=== PATIENT | female | born 1975 | race Caucasian/White ===

== ENCOUNTER → 2021-02-26 | Outpatient (CLI) | payer OTHER | END | disposition home or self-care (01) | LOC: RADMRIMAIN 11:26 | PROVIDERS: ATTEND Orthopaedic Surgery | DX: Z53.9 Procedure and treatment not carried out, unspecified reason (principal) ==

== ENCOUNTER → 2021-05-24 | Day surgery (SDC) | payer OTHER ==
[~2021-05-24] MED LIST: diazePAM 5 MG TAB PO STA
[2021-05-24 08:25] VITALS: RESP 16; TEMP 97.8
--- NOTE | 2021-05-24 10:05 | FL ---
EXAMINATION TYPE: FL myelogram cervical DATE OF EXAM: 05/24/2021 9:37 AM HISTORY: Cervical neck pain Informed consent was obtained and all the patient's questions were answered. The L3-L4 level was loc alized under fluoroscopy. Standard sterile technique was utilized as well as appropriate local anest hesia 1% Lidocaine and sodium bicarbonate. Spinal needle was introduced into the thecal sac under fl uoroscopic guidance and 12 ml of Omni 300 was injected. The patient tolerated the procedure well and left the department in stable condition. CT myelography is to follow. IMPRESSION: Successful myelography cervical spine
--- NOTE | 2021-05-24 10:41 | CT ---
EXAMINATION TYPE: CT cervical spine w con DATE OF EXAM: 05/24/2021 COMPARISON: None HISTORY: Post myelogram CT of the cervical spine. Neck pain CT DLP: 326.9 mGycm CONTRAST: Performed with IV Contrast, patient injected with 12 ml mL of Isovue M300. Post myelogram CT of the c ervical spine. Post myelography CT of the cervical spine was performed from C1 through C7-T1. Axial coronal and sag ittal images are submitted. C1-C2: Within normal limits C2-C3: Within normal limits C3-C4: Within normal limits C4-C5: There is mild degenerative disc space narrowing. Posterior disc bulge noted. Mild effacement o f the ventral thecal sac. No evidence for central stenosis or cord contact. Foramina are patent bilat erally. C5-C6: Mild to moderate degenerative disc space narrowing. Posterior disc bulge with partial encapsu lating spur. Centrally and to the right resulting in hard disc. There is mild effacement of the ventr al thecal sac without central stenosis. No cord contact identified. Mild narrowing right neural shakeel en secondary to a small spur. C6-C7: Within normal limits C7-T1: Within normal limits There is no evidence for fracture. Normal alignment is present. Minimal ventral spondylosis. IMPRESSION: 1. Degenerative disc disease at C4-5 and C5-6. 2. Right paracentral hard disc at C5-6 resulting in mild effacement ventral thecal sac without cord c ontact. Right foraminal encroachment secondary to spurring at the apophyseal joint.
[2021-05-24 12:49] VITALS: BP 105/58; PULSE 77
== END | disposition home or self-care (01) ==
LOC: RADPROMAIN 08:07
PROVIDERS: ATTEND Orthopaedic Surgery
DX: M50.322 Other cervical disc degeneration at C5-C6 level (principal); M25.78 Osteophyte, vertebrae
CPT/HCPCS: 62284; 62302; 72126; Q9967

== ENCOUNTER 2021-06-05 06:27 | Day surgery (SDC) | payer OTHER ==
[2021-06-03 15:53] VITALS: BMI 25.0
--- NOTE | 2021-06-04 13:20 | P.HPOR ---
History of Present Illness H&P Date: 06/04/21 Chief Complaint: Left Carpal Tunnel Syndrome Subjective: This is a 46 year old female that presents today for initial evaluation regarding a several year history of bilateral hand pain/numbness. She has symptoms at night time that wake her from sleep. She has tried night splinting as well as injections into the carpal tunnel with minimal relief. She has recently seen Dr. Amaya for mild right C5/6 nerve root irritation and is referred today for further evaluation regarding carpal tunnel syndrome findings on EMG. She denies any injury or inciting event. She states she has trouble lifting or gripping anything with the hand due to weakness. She states her left side is more symptomatic than her right but both hands are numb, specifically the thumb, index and middle fingers. Physical Examination: LUE: AIN/PIN/Radial/Ulnar/Median motor intact. Radial/Ulnar/Median SILT. 2+/4 Radial/Ulnar pulses palpated. 4/5 APB, 5/5 FDI. Negative Finkelsteins, negative CMC grind, positive Durkan's compression. RUE: AIN/PIN/Radial/Ulnar/Median motor intact. Radial/Ulnar/Median SILT. 2+/4 Radial/Ulnar pulses palpated. 4/5 APB, 5/5 FDI. Negative Finkelsteins, negative CMC grind, positive Durkan's compression. Imaging: EMG of the b/l upper extremities demonstrates mild bilateral carpal tunnel syndrome, evidence of mild right C5/6 nerve root irritation Impression: 1.)B/L carpal tunnel syndrome. Plan: Diagnosis and treatment options were discussed with the patient. She has signs and symptoms of bilateral carpal tunnel that has failed conservative treatment and she would like to go forward with surgical intervention. Risks and benefit of surgery including bleeding, infection, damage to surrounding tissue, need for further surgery, possible need to convert to open procedure, residual numbness were discussed and the patient wished to go forward with surgery. She will be scheduled for a left endoscopic vs open carpal tunnel release in the near future. -Atilio Munoz DO Orthopedic Hand/Upper Extremity Surgeon Past Medical History Past Medical History: Osteoarthritis (OA), Thyroid Disorder Additional Past Medical History / Comment(s): Disc herniation - 2 in neck, 3 in lower back, shoulder pain, hx Covid tested positive 04/11/21(fever, cough, fatigue and dyspnea). History of Any Multi-Drug Resistant Organisms: None Reported Past Surgical History: Bladder Surgery, Orthopedic Surgery Additional Past Surgical History / Comment(s): Bladder injections and neurostimulator implanted in back for bladder leakage, oral surgery. Past Anesthesia/Blood Transfusion Reactions: Motion Sickness, Postoperative Nausea & Vomiting (PONV) Past Psychological History: Anxiety, Depression Smoking Status: Never smoker Past Alcohol Use History: None Reported Additional Past Alcohol Use History / Comment(s): Quiyt smoking 08/23, smoked for 20 yrs. Past Drug Use History: None Reported - Past Family History Mother Family Medical History: No Reported History Medications and Allergies Home Medications Medication Instructions Recorded Confirmed Type FLUoxetine HCL 40 mg PO QAM 05/13/21 06/03/21 History Folic Acid 1 mg PO DAILY 05/13/21 06/03/21 History Levothyroxine Sodium [Levoxyl] 125 mcg PO QAM 05/13/21 06/03/21 History Cyanocobalamin (Vitamin B-12) 3,000 mcg PO DAILY 06/03/21 06/03/21 History [Vitamin B-12] Multivit with Calcium,Iron,Min 1 each PO DAILY 06/03/21 06/03/21 History [Women's Multivitamin] Pantoprazole [Protonix] 40 mg PO QAM 06/03/21 06/03/21 History Allergies Allergy/AdvReac Type Severity Reaction Status Date / Time ampicillin Allergy Rash/Hives Verified 06/03/21 15:38 latex Allergy Rash/Hives Verified 06/03/21 15:38 Physical Examination Osteopathic Statement: *. No significant issues noted on an osteopathic structural exam other than those noted in the History and Physical/Consult.
[~2021-06-05 06:27] MED LIST changes: +DEXAMETHASONE SOD PHOSPHATE 4 MG/ML 1 ML VIAL IV ONE; +LACTATED RINGERS 1,000 ML IV SCH; +ONDANSETRON 4 MG/2 ML VIAL IVP ONE; +Pre Op ABX Message 1 EACH MISC MISCELLANE ONE; -diazePAM 5 MG TAB PO STA
[2021-06-05 07:28] VITALS: TEMP 97.8
[2021-06-05] MEDS ORDERED: MIDAZOLAM 2 MG/2 ML VIAL ONE (07:55)
[2021-06-05] MEDS ORDERED: fentaNYL (PF) 50 MCG/ML 2 ML AMP ONE (07:55)
[2021-06-05] MEDS ORDERED: KETAMINE 10 MG/ML 20 ML VIAL ONE (07:55)
[2021-06-05] MEDS ORDERED: PROPOFOL 10 MG/ML 20 ML VIAL IV ONE (07:55)
[2021-06-05] MEDS ORDERED: BUPIVACAINE (PF) 0.5% 30 ML VIAL SQ ONE (08:10)
[2021-06-05] MEDS ORDERED: LIDOCAINE 1% INJ 10MG/ML (20 ML MDV) SQ ONE (08:10)
[2021-06-05 09:08] VITALS: BP 124/80; PULSE 54; RESP 16
--- NOTE | 2021-06-05 18:30 | P.OP ---
Date of Procedure: 06/05/21 Preoperative Diagnosis: Left carpal tunnel syndrome Postoperative Diagnosis: Left carpal tunnel syndrome Procedure(s) Performed: Left endoscopic carpal tunnel release Anesthesia: MAC Surgeon: Atilio Munoz Estimated Blood Loss (ml): 0 Pathology: none sent Condition: stable Disposition: PACU Description of Procedure: This is a 46 year old female who presents today for a left endoscopic carpal tunnel release after having failed conservative treatment in the past. Risks and benefits of surgery were discussed with the patient including bleeding, damage to surrounding tissue, infection, need to convert to open procedure, need for further surgery as well as risks of anesthesia including pulmonary embolism and even and the patient wished to proceed with surgical intervention. The patients was seen in the pre-operative area by myself. Consent and H&P were completed and updated. The correct extremity was marked in the pre-operative area by myself and all other questions were answered. Operative Narrative: The patient was brought to the operating room by the department of anesthesia. They remained on the portable stretcher and a rolling hand table was brought to the side of the operative extremity. Pre-operative time out was performed indicating the correct patient, procedure and laterality. All in the room agreed. The patient was then drifted off to sleep by the department of anesthesia. MAC anesthesia was utilized and a 50:50 mixture of 1% Lidocaine and 0.5% bupivacaine was injected into the subcutaneous tissues of the palmar skin, 7ccs total. A nonsterile tourniquet was then applied to the operative extremity and the left upper extremity was then prepped and draped in normal sterile fashion. The operative extremity was the exsanguinated with an esmarch bandage and the tourniquet was inflated to 250mmHg. 15 blade scalpel was utilized to make a transverse incision on the palmar skin just ulnar to the palmaris longus tendon at the level of the distal wrist crease. Ragnell retractor was then placed radially and blunt dissection was performed to reveal the distal forearm fascia. This was lifted with fine Roman pick ups and Littler tenotomy scissors were then used to open the forearm fascia transversely and a double skin hook was then placed. Hamate finder was placed into the carpal tunnel and then sequential sized dilators were inserted followed by the synovial elevator to separate the flexor tenosynovium from the undersurface of the transverse carpal ligament and a washboard texture was felt. The MicroAire endoscopic carpal tunnel release system gun was the then inserted into the carpal tunnel hugging the deep portion of the transverse carpal ligament in line with the base of the ring finger. Transverse fibers of the ligament were directly visualized. Pressure was applied on the palm to reveal the distal extent of the transverse carpal ligament. The blade was then deployed and the distal half of the transverse carpal ligament was released. The scope was then brought distal again and remaining transverse fibers were incised with the blade. The proximal half of the transverse carpal ligament was then divided and again the scope was advanced distal and remaining transverse fibers were incised with the blade. The radial and ulnar leaflets were directly visualized and mobile consistant with complete release. Tenotomy scissors were then utilized to release the remaining distal forearm fascia under direct visualization taking care to preserve the palmar cutaneous branch of the median nerve. Skin closure was performed with interrupted 4-0 Monocryl suture followed by Mastisol and steri strips. Sterile dressing was applied consisting of adaptic, 4x4s, Webril, and an nasreen bandage. Tourniquet was let down and the hand immediately was well perfused. The patient was then woken by the department of anesthesia and transferred to PACU in stable condition. Atilio Munoz D.O. Orthopedic Hand/Upper Extremity Surgeon
== END 2021-06-05 09:56 | disposition home or self-care (01) ==
LOC: OR 06:27
PROVIDERS: ATTEND Orthopaedic Surgery Hand Surgery
DX: G56.02 Carpal tunnel syndrome, left upper limb (principal); M19.90 Unspecified osteoarthritis, unspecified site; E07.9 Disorder of thyroid, unspecified; M50.20 Other cervical disc displacement, unspecified cervical region; M51.26 Other intervertebral disc displacement, lumbar region; Z86.16 Personal history of COVID-19; Z98.890 Other specified postprocedural states; Z96.82 Presence of neurostimulator; F41.9 Anxiety disorder, unspecified; F32.A Depression, unspecified; Z87.891 Personal history of nicotine dependence; Z79.890 Hormone replacement therapy; Z79.899 Other long term (current) drug therapy; Z88.0 Allergy status to penicillin; Z91.040 Latex allergy status
CPT/HCPCS: 81025; 64721; J2250; J1100; J2405; J2001; J3010; J2704

== ENCOUNTER 2021-07-31 09:51 | Day surgery (SDC) | payer OTHER ==
[2021-07-30 09:42] VITALS: BMI 25.7
--- NOTE | 2021-07-30 13:28 | P.HPOR ---
History of Present Illness H&P Date: 07/30/21 Chief Complaint: Right carpal tunnel syndrome Subjective: This is a 46 year old female that presents today for a post-operative visit after undergoing a left endoscopic carpal tunnel release on 06/05/21. She has been doing well and has no more numbness present in the fingertips. She would like to schedule her right hand surgery but has also has cervical spine surgery coming up in August with Dr. Amaya. She feels strong enough to go forward with right carpal tunnel release now being a month out from surgery. Physical Examination: LUE: AIN/PIN/Radial/Ulnar/Median motor intact. Radial/Ulnar/Median SILT. 2+/4 Radial/Ulnar pulses palpated. Incision healed at volar wrist crease. Able to make a full fist. RUE: AIN/PIN/Radial/Ulnar/Median motor intact. Radial/Ulnar/Median SILT. 2+/4 Radial/Ulnar pulses palpated. Positive Durkan's compression, positive tinels at wrist. Impression: 1.) S/P Left endoscopic carpal tunnel release. 2.) Right carpal tunnel syndrome Plan: Diagnosis and treatment options and were discussed with the patient. She may use the hand as tolerated and work on scar massage at the incision site. Her right side endoscopic vs open carpal tunnel release will be scheduled in the near future. Risks and benefits of surgery were discussed including bleeding, infection, damage to surrounding tissue, residual numbness, need to convert to open procedure and she wished to go forward with surgery. -Atilio Munoz DO Orthopedic Hand/Upper Extremity Surgeon Past Medical History Past Medical History: Osteoarthritis (OA), Thyroid Disorder Additional Past Medical History / Comment(s): disc herniation 2 in neck, 3 in lower back, shoulder pain, recent covid 19 infection symptoms started April 06, 2021, tested positive April 11 2021 and then tested negative April 18. History of Any Multi-Drug Resistant Organisms: None Reported Past Surgical History: Bladder Surgery, Orthopedic Surgery Additional Past Surgical History / Comment(s): bladder injections and neurosti mulator implanted in back for bladder leakage, oral surgery, LT [facility]-06/05/21 Past Anesthesia/Blood Transfusion Reactions: No Reported Reaction Smoking Status: Never smoker - Past Family History Mother Family Medical History: No Reported History Medications and Allergies Home Medications Medication Instructions Recorded Confirmed Type FLUoxetine HCL 40 mg PO QAM 05/13/21 07/30/21 History Folic Acid 1 mg PO DAILY 05/13/21 07/30/21 History Levothyroxine Sodium [Levoxyl] 125 mcg PO QAM 05/13/21 07/30/21 History Cyanocobalamin (Vitamin B-12) 3,000 mcg PO DAILY 06/03/21 07/30/21 History [Vitamin B-12] Multivit with Calcium,Iron,Min 1 each PO DAILY 06/03/21 07/30/21 History [Women's Multivitamin] Pantoprazole [Protonix] 40 mg PO QAM 06/03/21 07/30/21 History QUEtiapine FUMARATE 300 mg PO HS 07/30/21 07/30/21 History Allergies Allergy/AdvReac Type Severity Reaction Status Date / Time ampicillin Allergy Rash/Hives Verified 07/30/21 09:33 latex Allergy Rash/Hives Verified 07/30/21 09:33 Physical Examination Osteopathic Statement: *. No significant issues noted on an osteopathic structural exam other than those noted in the History and Physical/Consult.
[~2021-07-31 09:51] MED LIST changes: -DEXAMETHASONE SOD PHOSPHATE 4 MG/ML 1 ML VIAL IV ONE; +HYDROmorphone 0.5 MG/0.5 ML SYRINGE IVP PRN; +LIDOCAINE 1% (10MG/ML) FOR IV START INTRADERMA PRN; -ONDANSETRON 4 MG/2 ML VIAL IVP ONE
[2021-07-31 10:25] VITALS: RESP 16; TEMP 97.5
[2021-07-31] MEDS ORDERED: ONDANSETRON 4 MG/2 ML VIAL ONE (10:34)
[2021-07-31] MEDS ORDERED: DEXAMETHASONE SOD PHOSPHATE 4 MG/ML 1 ML VIAL IV ONE (10:38)
[2021-07-31] MEDS ORDERED: MIDAZOLAM 2 MG/2 ML VIAL ONE (11:04)
[2021-07-31] MEDS ORDERED: fentaNYL (PF) 50 MCG/ML 2 ML AMP ONE (11:04)
[2021-07-31] MEDS ORDERED: PROPOFOL 10 MG/ML 20 ML VIAL IV ONE (11:04)
[2021-07-31] MEDS ORDERED: BUPIVACAINE (PF) 0.25% 30 ML VIAL SQ ONE (11:15)
[2021-07-31 12:26] VITALS: BP 109/70; PULSE 67
--- NOTE | 2021-07-31 19:45 | P.OP ---
Date of Procedure: 07/31/21 Preoperative Diagnosis: Right carpal tunnel syndrome Postoperative Diagnosis: Right carpal tunnel syndrome Procedure(s) Performed: Right endoscopic carpal tunnel release Anesthesia: MAC Surgeon: Atilio Munoz Home Therapy Clinician #1: Ashwin Mcbride Estimated Blood Loss (ml): 0 Pathology: none sent Condition: stable Disposition: PACU Description of Procedure: This is a 46 year old female who presents today for a right endoscopic carpal tunnel release after having failed conservative treatment in the past. Risks and benefits of surgery were discussed with the patient including bleeding, damage to surrounding tissue, infection, need to convert to open procedure, need for further surgery as well as risks of anesthesia including pulmonary embolism and even and the patient wished to proceed with surgical intervention. The patients was seen in the pre-operative area by myself. Consent and H&P were completed and updated. The correct extremity was marked in the pre-operative area by myself and all other questions were answered. Operative Narrative: The patient was brought to the operating room by the department of anesthesia. They remained on the portable stretcher and a rolling hand table was brought to the side of the operative extremity. Pre-operative time out was performed indicating the correct patient, procedure and laterality. All in the room agreed. The patient was then drifted off to sleep by the department of an esthesia. MAC anesthesia was utilized and 0.5% bupivacaine was injected into the subcutaneous tissues of the palmar skin, 10 ccs total. A nonsterile tourniquet was then applied to the operative extremity and the right upper extremity was then prepped and draped in normal sterile fashion. The operative extremity was the exsanguinated with an esmarch bandage and the tourniquet was inflated to 250mmHg. 15 blade scalpel was utilized to make a transverse incision on the palmar skin just ulnar to the palmaris longus tendon at the level of the distal wrist crease. Ragnell retractor was then placed radially and blunt dissection was performed to reveal the distal forearm fascia. This was lifted with fine Roman pick ups and Littler tenotomy scissors were then used to open the forearm fascia transversely and a double skin hook was then placed. Hamate finder was placed into the carpal tunnel and then sequential sized dilators were inserted followed by the synovial elevator to separate the flexor tenosynovium from the undersurface of the transverse carpal ligament and a washboard texture was felt. The MicroAire endoscopic carpal tunnel release system gun was the then inserted into the carpal tunnel hugging the deep portion of the transverse carpal ligament in line with the base of the ring finger. Transverse fibers of the ligament were directly visualized. Pressure was applied on the palm to reveal the distal extent of the transverse carpal ligament. The blade was then deployed and the distal half of the transverse carpal ligament was released. The scope was then brought distal again and remaining transverse fibers were incised with the blade. The proximal half of the transverse carpal ligament was then divided and again the scope was advanced distal and remaining transverse fibers were incised with the blade. The radial and ulnar leaflets were directly visualized and mobile consistent with complete release. Tenotomy scissors were then utilized to release the remaining distal forearm fascia under direct visualization taking care to preserve the palmar cutaneous branch of the median nerve. Skin closure was performed with interrupted 4-0 Monocryl suture followed by Mastisol and steri strips. Sterile dressing was applied consisting of 4x4s, Webril, and an nasreen bandage. Tourniquet was let down and the hand immediately was well perfused. The patient was then woken by the department of anesthesia and transferred to PACU in stable condition. Ashwin ALSTON was present for the case in its entirety and assisted in major portions of the case and protection of vital neurovascular structures. Atilio Munoz D.O. Orthopedic Hand/Upper Extremity Surgeon
== END 2021-07-31 12:47 | disposition home or self-care (01) ==
LOC: OR 09:51
PROVIDERS: ATTEND Orthopaedic Surgery Hand Surgery
DX: G56.01 Carpal tunnel syndrome, right upper limb (principal); M19.90 Unspecified osteoarthritis, unspecified site; E07.9 Disorder of thyroid, unspecified; M50.20 Other cervical disc displacement, unspecified cervical region; M51.26 Other intervertebral disc displacement, lumbar region; F32.A Depression, unspecified; K21.9 Gastro-esophageal reflux disease without esophagitis; Z86.16 Personal history of COVID-19; Z79.890 Hormone replacement therapy; Z79.899 Other long term (current) drug therapy; Z88.0 Allergy status to penicillin; Z91.040 Latex allergy status; Z98.890 Other specified postprocedural states
CPT/HCPCS: 81025; 29848; J2250; J1100; J2405; J3010; J2704

== ENCOUNTER → 2021-08-05 | Outpatient (CLI) | payer OTHER | END | disposition home or self-care (01) | LOC: LABPAT 10:37 | PROVIDERS: ATTEND Orthopaedic Surgery | DX: Z01.812 Encounter for preprocedural laboratory examination (principal); Z22.322 Carrier or suspected carrier of Methicillin resistant Staphylococcus aureus; M50.222 Other cervical disc displacement at C5-C6 level | CPT/HCPCS: 87070 ==

== ENCOUNTER 2021-08-13 10:31 | Observation (INO) | payer OTHER ==
[2021-08-12 10:51] VITALS: BMI 25.9
--- NOTE | 2021-08-12 16:35 | P.HPOR ---
History of Present Illness H&P Date: 08/05/21 [facility] Date of :[birth year] Age: 45 year Height: 5'2" Weight: 140 lbs BP:125/78 BMI: 25.61 kg/m2 Occupation: Unemployed VAS: 10 CHIEF COMPLAINT: Cervical pain HISTORY: Xrays No new xrays taken in office Trauma or injury No Work-Related No Pain description Sharp Location posterior diffuse Activity Modification yes , unable to do activities involving bending/lifting/twisting of the neck. Hand Dominance right DOI: Chronic, no injury or trauma. DOS: None. TREATMENTS COMPLETED: 6 weeks of PT completed? Yes How many sessions? 12 Did it help? No Physician directed home exercise completed? Yes, without improvements. Medications yes List: Naproxen 500mg and Gabapentin 300mg with no improvements to her symptoms. Alternative interventions Chiropractic?: No Brace: No Injections Yes (over 1 year ago) How many? Not specified. Did they help? No RFA: No SUBJECTIVE: Patient returns to the office for a pre-operative review of the planned C5-C6 Total Disc Replacement. Since the time of the last appointment the patient reports that she has seen no improvements to her symptoms. She notes that she has failed to improve with all conservative modalities trialed thus far and has seen a great loss in daily functions due to her pain. All questions and concerns are addressed and the patient expressed understanding. Otherwise she continues to deny any bladder or bowel retention/incontinence, no perineal numbness/tingling, and ambulates independently. She states she is ready for surgery as nothing seems to be working for her at this time. HPI: Patient last presented to the office on 06/14/[address] myelogram obtained after the time of the last appointment. Since the time of the last appointment the patient reports that she did follow up with Dr. Munoz and notes that she did have a left carpal tunnel release done on 06/05/2021. Aside form this she has continued with the HEP and well as Naproxen/Gabapentin without relief of her symptoms. Overall she reports that her cervical pain and radiculopathic symptoms, noting that she has failed to improve with all conservative modalities trialed thus far. Otherwise she continues to report issue with completing most of her daily activities due to the severity of her symptoms. She presents to the office without the use of any aids. Patient last presented to the office on 05/02/2020 for a recheck of her cervical spine and to review the results of her EMG. Of note, the patient was not able to complete the MRI due to have a stimulator implant . Overall she notes that her symptoms have not changed since the time of the last appointment. Additionally she denies having trialed any new treatment modalities since the time of the last appointment aside from the physician directed home exercise program with which she found no improvements. Otherwise she continues to report issue with completing most of her daily activities due to the severity of her symptoms. She presents to the office without the use of any aids. Ms. Gallego last presented to the office on 02/04/21 for an evaluation of her cervical region. She notes that this pain has been ongoing for 10 years with no known injury or trauma to indicate an exact onset of her symptoms. Over this time, her symptoms have progressively worsened in severity. Regarding her symptoms she notes that her pain is primarily on the left side of the neck that radiates into the left upper extremity. She notes a constant scapular "burning" as well. This is associated with numbness and tingling in the distal extremities of the left arm. Her symptoms are exacerbated with any ambulation of the left arm or bending/lifting/twisting motions regarding the neck. Due to this she has had reduced her ROM regarding the neck which has led to stiffness diffusely about the neck. So far, she has tried a round of PT with no improvements, injections over a year ago with no improvements, and takes Naproxen 500mg and gabapentin 300mg with no improvements. Along with this she has had an MRI of the cervical region completed on 01/19/2020. She presents to the office today for further evaluation of her chronic cervical symptomology. The patients' past social, medical, family, surgical history, as well as review of systems, have been reviewed. Please refer to the Neurosurgery History and Physical form that has been scanned in to our electronic medical record system. 14 points review of systems completed and as stated in HPI, all other systems reviewed are negative. Social History: Reviewed, see appropriate section of the chart for details. P3 Social History: Smoking: never a smoker P3 Alcohol: none P3 Family History: Reviewed, see appropriate section of the chart for details. P2P2 P2 Past Medical History: Reviewed, see appropriate section of the chart for details. P1 P1 Current Medications: Rx: B12 Ref: 0 Rx: folic acid Ref: 0 Rx: levothyroxine Ref: 0 Rx: multivitamin Ref: 0 Rx: naproxen Ref: 0 Rx: tiZANidine Ref: 0 Rx: Vitamin D3 Ref: 0 P1 PHYSICAL EXAMINATION: General: Awake, alert, appropriate for age, in no acute distress. HEENT: No unusual neck masses around region of lateral neck triangle, thyroid, supraclavicular groove Extremities: Skin warm and dry without acute lesions, coloration, temperature, skin intact, no tenderness or erythema Integument: Hairy patches: Absent Dorsal skin dimples: Absent Cafe au lait spots: Absent Surgical incisions: No Palpation: Please see Pain drawing on Intake sheet for further detail. Midline spinal tenderness: No E6 Paralumbar tenderness: No E6 Parathoracic tenderness: No E6 Buttocks tenderness: No E6 Special findings: No Mild Post cervical TTP POSTURAL and MUSCULO-SKELETAL EVALUATION: Coronal Balance: NEUTRAL Recumbent testing: Patient is able to lay flat on back Sagittal Balance: NEUTRAL Shoulder Profile: LEVEL Pelvic Girdle: LEVEL Neck ROM: RESTRICTED Lumbar ROM: UNRESTRICTED Shoulder ROM: Symmetrical Hip ROM: Symmetrical Knee ROM: Symmetrical Hands: Normal appearance, symmetrical Feet: Normal appearance, Symmetrical VASCULAR STATUS : LEFT RIGHT Wrist Pulses INTACT INTACT Pedal Pulses (Dors. pedis & post.tibialis) INTACT INTACT Color NORMAL NORMAL Edema Absent Absent NEUROLOGIC EXAMINATION: Mental Status:Awake and alert, fully oriented, with normal attention, concentration and memory, and fluent, appropriate speech. Cranial Nerves: I: Olfactory not tested. II: Visual acuity normal, no visual field deficit noted with confrontation. III,IV: Normal pupillary reflexes & intact extraocular movements without nystagmus. V,: Intact symmetrical facial sensation. VII: Intact symmetrical facial motor movement VIII: Hearing intact. IX,X: Intact gag, swallow, & normal voice. XI: Sternocleidomastoid, trapezius function intact. XII: Tongue midline with normal movements. L'hermitte's Sign: Negative / absent Spurling'Sign: Absent bilaterally. Cubital percussion test: Absent bilaterally. Juani-Tinel sign - Carpal region: Absent bilaterally. Straight Leg Raising: Absent bilaterally. Crossed straight leg raise: negative O8 MOTOR EXAM (0-5/5, N/T) STRENGTH RIGHT LEFT Shoulder Abd (not part of the JUNIOR score) 5 5 Elbow Flexors 5 4+ Elbow Extensor 5 4+ Wrist Dorsiflexors 5 4+ Finger Abductor 5 5 Human Resources Benefits Specialist 5 5 Hip Flexor (Not part of JUNIOR Motor score) 5 5 Knee Flexor 5 5 Knee Extensor 5 5 Ankle dorsiflexor 5 5 Ankle plantarflexion 5 5 Extensor hallucis 5 5 REFLEXES(0-4/2, NT) RIGHT LEFT Upper Extremities 3 2 Lower Extremities 2 2 Pathological Reflexes RIGHT LEFT Victor's Present Absent Clonus Absent Absent Babinski Absent Absent # Indicates mechanical impairment Muscle appearance: Symmetrical, without signs of atrophy or dystrophy. Rectal Tone:Deferred Sensory system (0-4, N/T) Test type RU GABINO RL LL Joint-Position 2 2 2 2 Vibration 2 2 2 2 Pain & LT sense 2 2 2 2 Dermatomal Deficit: None C5-6 None None Gait and Functional Evaluation: Ambulatory aids: Independent Romberg's test: Intact bilaterally Toe heel walk / heel-toe walk intact while maintaining satisfactory balance? yes Squatting/straightening w/o assistance to a min of 60 degree knee flexion? yes Single leg stance: No Trendelenburg sign negative bilaterally Hand and finger dexterity intact bilaterally? No Disdiadochokinesis examination negative bilaterally? yes RADIOGRAPHIC STUDIES: XRay taken on 02/04/21 of Cervical Spine: These show some reversal of the normal cervical lordosis centered around C3-4 and C4-5 with about 7 deg kyphosis. This is reduced on extension films. There is no overt instability. OC and C1-2 appear stable. No fractures. Mild facet arthropathy CT myelogram cervical spine from 05/24/2021: This is reviewed and demonstrate spondylosis C4 5 C5 6 and C6 7 the worst of which is at C5-C6. There is disc desiccation with posterior disc osteophyte complex as well as posterior spurring there is left greater than right foraminal stenosis central stenosis related to disc osteophyte complex. This is moderate in nature.there is no acute fracture dislocation otherwise noted no acute lesions occipital cervical C1 2 joints appear stable. There is facet arthropathy at the levels mentioned above. MRI scan from 01/19/20 of Cervical Spine: this demonstrates two HNP at C4-5 and C5-6 which are moderate in nature causing moderate central and bilateral foraminal stenosis. There is no fracture or lesions. There is questionable cord signal changes at these levels where there is contact with the cord from the herniations. No lesions or instability noted. IMPRESSION AND PLAN: It was my pleasure to have seen and examined Fransisca. I reviewed the patient's clinical syndrome, physical findings, and imaging studies during the appointment today. It is my impression that the patient has a diagnosis of. 1. C4-C5 herniated nucleus pulposus 2.C5-C6 stenosis 3. BL UE radiculopathy L>R 4. Bilateral upper extremity weakness, left worse than right .DX:Diagnosis: Herniated cervical nucleus pulposus : ICD10 = M50.20 / ICD9 = 722.0 / SNOMED = 85526775 .DX:Diagnosis: Cervical spinal stenosis : ICD10 = M48.02 / ICD9 = 723.0 / SNOMED = 96665073 .DX:Diagnosis: Pain in left upper extremity : ICD10 = M79.602 / ICD9 = 729.5 / SNOMED = 116085163 .DX:Diagnosis: Weakness of bilateral upper extremities : ICD10 = M62.81 / SNOMED = 38271665027409514 I outlined the natural course history without intervention and various interventional options. Based on my findings I suggest the following course of action: 1.The nature of the disorder and treatment options were discussed with the patient.At this time she is having continued failure to improve with conservative treatments and is having issues completing most of he daily tasks. Based on this I discussed treatment options with the patient, including operative and non-operative options, and they have elected to proceed with the following surgical procedure: C5-C6 Total Disc Replacement (95236) The indications, risks, benefits, and alternatives to surgery were discussed with the patient at length. Specifically (but not limited to) the risks of infection, stiffness, recurrence of symptoms, need for revision surgery, local numbness, neurovascular injury, and blood clots were discussed. The patient's questions were answered. The decision to proceed was made. Consent will be obtained for the procedure. We did discuss that she will need to follow up with her primary care for pre-operative clearance. Patient is understanding of this and agreeable with this treatment course. 2. Continue following with Dr. Munoz for further evaluation and treatment of her bilateral carpal tunnel syndrome. Spine Surgery Risk Review Fransisca Gallego is presenting for evaluation of low back pain. It was my pleasure to have seen and examined Fransisca Gallego. In our visit today we have had a chance to go over subjective complaints, physical examination findings and treatments including the natural course history without intervention and various interventional options. The patients imaging demonstrates xrays: These show some reversal of the normal cervical lordosis centered around C3-4 and C4-5 with about 7 deg kyphosis. This is reduced on extension films. There is no overt instability. OC and C1-2 appear stable. No fractures. Mild facet arthropathy. CT: This is reviewed and demonstrate spondylosis C4 5 C5 6 and C6 7 the worst of which is at C5-C6. There is disc desiccation with posterior disc osteophyte complex as well as posterior spurring there is left greater than right foraminal stenosis central stenosis related to disc osteophyte complex. This is moderate in nature.there is no acute fracture dislocation otherwise noted no acute lesions occipital cervical C1 2 joints appear stable. There is facet arthropathy at the levels mentioned above. MRI: this demonstrates two HNP at C4-5 and C5-6 which are moderate in nature causing moderate central and bilateral foraminal stenosis. There is no fracture or lesions. There is questionable cord signal changes at these levels where there is contact with the cord from the herniations. No lesi ons or instability noted. . On physical exam, Fransisca Gallego demonstrates severely restricted cervical ROM with RUE radiculopathy, weakness, positive Hoffmans, and hyperreflexia. I have explained to the patient that as their condition progresses it will cause further neurological deficits and eventual paralysis. Based on the patients imaging, physical exam, and the rapid progression and disabling nature of their symptoms, at this time I recommend surgery in the form or a: C5-C6 Total Disc Replacement. I discussed the risk and benefits of this procedure at length with Fransisca Gallego. The patient agreed to considered pursuing the procedure abovementioned. Prior to surgery, she should follow up with her PCP (Cardio, ID, IM etc) for clearance. Questions were invited and answered, and the patient wishes to proceed as outlined below. Currently, I am recommendin.C5-C6 Total Disc Replacement 2.Follow up with PCP for surgical clearance 3.Review of surgical risks and benefits as well as an educational packet on the proposed surgical procedure. Risks: All surgical procedures come with inherent risks, including those related to positioning, anesthesia, intraoperative findings, and postoperative complications. It is important to understand that surgery does not come with any guarantee of a successful outcome as complications and adverse events are always possible. The patient was given a handout in office today discussing the surgical procedure and risks associated with the intervention, both of which were discussed with the patient. These risks include but are not limited to the following: * Experiencing same, different or even worse symptoms in back, neck, arms, or legs compared to before surgery. Requiring further surgery or other forms of treatment presently or at some time in the future at same or other levels of the intended spine surgery. On an extreme but fortunately relatively rare basis severe complication such as blindness, stroke, heart attack, temporary and/or permanent nerve injury, paralysis, coma, or may occur, sometimes without known explanation. Surgical complications may include but are not limited to risk of infection, fluid accumulation in the surgical dissection site, including a seroma or hematoma, that requires additional surgery, wound drainage, bleeding, new numbness or weakness, vision changes/loss, spinal fluid leakage, non-healing and/or infected incision, headaches, difficulty or inability to swallow, hoarseness, hemopneumothorax, pneumothorax, impotence, retrograde ejaculation, vaginal dryness; injury to nerves, spinal cord, blood vessels, lymphatics or other vital organs (i.e., bowel injury, injury to the great vessels); heterotopic bone formation; complications related to the hardware such as screws, rods, cages including misplaced hardware, device failure, instrumentation at the wrong spine level, hardware fracture/breakage, or hardware loosening; vertebral failure of the spinal column above or below the newly placed hardware; retained surgical instrumentations or devices and the need for further surgery. * Medical risks of the planned spine surgery include but are not limited to generalized Infections to the whole body or local areas outside of the surgical site (sepsis), heart attack, bleeding, anaphylaxis, meningitis, seizure, epilepsy, hearing loss, burn rouse, laceration of the head or other areas of the body, bruising, hypersensitivity of the skin, bladder over distension; allergic reaction; shoulder injury related to positioning; fat, blood and air clots to other areas of the body like heart, lungs, brain; failure of internal organs such as lungs, kidneys, liver and excessive bleeding. If blood transfusions are necessary, note that transfusions may cause intolerance reactions such as anaphylaxis or other complex reactions. Despite best efforts, the results of spine surgery might not heal in terms of bone, soft tissues such as skin, fascia, ligaments, and joints. Additionally, in order to achieve best possible results, spine surgery may be carried out beyond the initially planned levels and involve decompression, fusion including insertion of hardware at levels other than the original intended area of surgical interest change some portions of the procedure in order to ensure the best possible outcomes. With spine surgery and spinal fusion, there are different off label uses of instrumentation (devices, implants and hardware) as well as biological substances (bone morphogenic proteins, demineralized bone matrix) as well as using extra bone from allograft sources (i.e. cadaver bone) or autograft (iliac crest bone, ribs, or the spine itself). The patient has been given information about these practices and their inherent risks and benefits. [facility] is an educational center that serves as a training facility for neurosurgical and orthopedic AUTOMATION SOFTWARE ENGINEER and Nursing students. Physician assistants are medically trained surgical providers who function in the outpatient, inpatient, and operating room setting under the direct supervision of the attending surgeon. [facility] has multiple operating rooms with single and overlapping rooms running daily. They currently function under the required guidelines as produced by the [facility] Finance Committee with regards to the overlapping rooms and will continue to comply with changes to this policy as they occur. The requirements include and are complied with as follows: (1) the critical portions of the overlapping rooms will not occur at the same time, (2) the attending physician will be physically present during the critical portions of the procedure and immediately available during the entire case, and (3) a back-up attending is designated should the primary attending not be immediately availa ble. The patient has had a chance to review all the listed information, has been given print outs detailing this information, and has had all his/her questions answered to their satisfaction. It was my pleasure to have seen and examined Fransisca Gallego. In our visit today we have had a chance to go over my understanding of our patient's current condition, the natural course history without intervention and various interventional options. Questions were invited and answered, and the patient wishes to proceed as outlined above. I have seen and examined the patient for 25 minutes and we have spent more than 50% of the time in repeat and detailed counseling about the patient's condition, its natural course history with out and as much as can be predicted with surgery and re-review of various surgical treatment options. In conclusion, Fransisca Gallego requested we proceed with the above suggested surgery and are willing to accept risks and limitations of the suggested surgery as nature of the disease process and our best attempts at treatment for the condition. Thank you again for allowing us to be part of your patient's care. Please don't hesitate to contact me if you have any further questions. Signed and authenticated by: [employer] P:\\\\ppart\\\\Files\\\\[id number] 1\\\\[id number]\\\\[id number]\\\\[id number]\\\\[id number]\\\\[id number]\\\\[id number]\\\\[id number] 01\\\\[id number]\\\\[id number]\\\\[id number]\\\\[id number]\\\\[id number].PNG \\d Rd Amaya DO [facility] Complex and Minimally Invasive Spine Surgery [address] [place] [address] Follow-up: post op Patient Education (Informational booklet, instructions, etc) given at today's appointment: Yes .ED:Patient Education: Y Plan at next visit: review progress Medications Reviewed: yes In our visit today Ms. Gallego and I have had a chance to go over my understanding of the patient's current condition, the natural course history without intervention and various interventional options. Questions were invited and answered, and the patient wishes to proceed as outlined above. I will be sure to keep you updated afterMs. Gallego returns here for further follow-up. Thank you again for your referral. Please do not hesitate to contact me if you have any further questions. Signed and authenticated by: Rd [facility]imally Invasive Spine Surgery [address] [place], [place] [id number] Past Medical History Past Medical History: Hyperlipidemia, Osteoarthritis (OA), Thyroid Disorder Additional Past Medical History / Comment(s): disc herniation 2 in neck, 3 in lower back, shoulder pain, recent covid 19 infection symptoms started April 06, 2021, tested positive April 11 2021 and then tested negative April 18,anemia-received iron transfusions-last received Nov 2020 History of Any Multi-Drug Resistant Organisms: None Reported Past Surgical History: Bladder Surgery, Orthopedic Surgery Additional Past Surgical History / Comment(s): bladder injections and neurostimulator implanted in back for bladder leakage, lower jaw surgery 2013,rt carpel tunnel 07-31-21 Past Anesthesia/Blood Transfusion Reactions: Family History of Problems w/ Anesthesia, Motion Sickness, Postoperative Nausea & Vomiting (PONV) Additional Past Anesthesia/Blood Transfusion Reaction / Comment(s): siblings and parents PONV. no hx blood transfusions Smoking Status: Never smoker - Past Family History Mother Family Medical History: No Reported History Medications and Allergies Home Medications Medication Instructions Recorded Confirmed Type FLUoxetine HCL 60 mg PO QAM 05/13/21 08/12/21 History Folic Acid 1 mg PO DAILY 05/13/21 08/12/21 History Levothyroxine Sodium [Levoxyl] 100 mcg PO QAM 05/13/21 08/12/21 History Pantoprazole [Protonix] 40 mg PO QAM 06/03/21 08/12/21 History QUEtiapine FUMARATE 300 mg PO HS 07/30/21 08/12/21 History Acetaminophen Tab [Tylenol Tab] 1,000 mg PO Q6HR PRN 08/12/21 08/12/21 History Atorvastatin [Lipitor] 20 mg PO DAILY 08/12/21 08/12/21 History Allergies Allergy/AdvReac Type Severity Reaction Status Date / Time ampicillin Allergy Rash/Hives Verified 08/12/21 09:59 latex Allergy Rash/Hives Verified 08/12/21 09:59 Physical Examination Osteopathic Statement: *. No significant issues noted on an osteopathic structural exam other than those noted in the History and Physical/Consult.
[~2021-08-13 10:31] MED LIST changes: +ACETAMINOPHEN TAB 500 MG TAB PO PRN; +GABAPENTIN 300 MG CAP PO PRN; -LACTATED RINGERS 1,000 ML IV SCH; -LIDOCAINE 1% (10MG/ML) FOR IV START INTRADERMA PRN; +MIDAZOLAM 2 MG/2 ML VIAL IV PRN; +ONDANSETRON 4 MG/2 ML VIAL IVP PRN; -Pre Op ABX Message 1 EACH MISC MISCELLANE ONE; +TRANEXAMIC ACID IN NACL,ISO-OS 1,000 MG in SALINE 1 100ML.BAG IVPB PRN
[2021-08-13] MEDS: LACTATED RINGERS 1,000 ML IV SCH (10:41)
[2021-08-13] MEDS ORDERED: LACTATED RINGERS 1,000 ML IV ONE (11:00)
[2021-08-13] MEDS ORDERED: ACETAMINOPHEN TAB 500 MG TAB ONE (11:09)
[2021-08-13] MEDS ORDERED: ONDANSETRON 4 MG/2 ML VIAL ONE (11:09)
--- NOTE | 2021-08-13 12:36 | P.PN ---
Progress Note - Text Progress Note Date: 08/13/21 History and Physical UPDATE I have seen and examined the patient and reviewed the history and physical. There appear to be no significant changes in the patient's current medical status as outlined in the current History and Physical.
[2021-08-13] MEDS ORDERED: LIDOCAINE 2% INJ 20 MG/ML (2 ML VIAL) ONE (13:05)
[2021-08-13] MEDS ORDERED: KETAMINE 10 MG/ML 20 ML VIAL ONE (13:05)
[2021-08-13] MEDS ORDERED: diphenhydrAMINE 50 MG/ML 1 ML VIAL ONE (13:05)
[2021-08-13] MEDS ORDERED: TRANEXAMIC ACID IN NACL,ISO-OS 1,000 MG/100 ML BAG ONE (13:05)
[2021-08-13] MEDS ORDERED: MIDAZOLAM 2 MG/2 ML VIAL ONE (13:05)
[2021-08-13] MEDS ORDERED: PHENYLEPHRINE-0.9% NACL SYG 1,000 MCG/10 ML SYRINGE ONE (13:05)
[2021-08-13] MEDS ORDERED: fentaNYL (PF) 50 MCG/ML 2 ML AMP ONE (13:05)
[2021-08-13] MEDS ORDERED: GLYCOPYRROLATE 0.2 MG/ML 2 ML VIAL ONE (13:05)
[2021-08-13] MEDS ORDERED: HYDROmorphone (PF) 1 MG/ML ONE (13:05)
[2021-08-13] MEDS ORDERED: SUCCINYLCHOLINE CHLORIDE 100 MG/5 ML SYR IV ONE (13:05)
[2021-08-13] MEDS ORDERED: DEXAMETHASONE SOD PHOSPHATE 10 MG/ML 1 ML VIAL ONE (13:05)
[2021-08-13] MEDS ORDERED: PROPOFOL 10 MG/ML 20 ML VIAL IV ONE (13:05)
[2021-08-13] MEDS ORDERED: GELATIN SPONGE,ABSORB (LARGE) 1 EACH SPONGE TOPICAL ONE (13:10)
[2021-08-13] MEDS ORDERED: THROMBIN (BOVINE) 5,000 UNIT VIAL TOPICAL ONE (13:10)
[2021-08-13] MEDS ORDERED: LIDOCAINE 0.5%-EPI 1:200,000 50 ML VIAL SQ ONE (13:10)
[2021-08-13] MEDS ORDERED: ceFAZolin 1,000 MG in SODIUM CHLORIDE 0.9% 1,000 ML IRRIGATION ONE (13:58)
[2021-08-13] MEDS ORDERED: HYDROcodone/APAP 10-325MG 1 EACH TAB PO PRN (15:23)
[2021-08-13] MEDS ORDERED: CYCLOBENZAPRINE 5 MG TAB PO PRN (15:23)
[2021-08-13] MEDS ORDERED: HYDROmorphone 0.5 MG/0.5 ML SYRINGE IVP PRN (15:23)
[2021-08-13] MEDS ORDERED: ONDANSETRON 4 MG/2 ML VIAL IVP PRN (15:23)
--- NOTE | 2021-08-13 15:41 | P.OP ---
Date of Procedure: 08/13/21 Preoperative Diagnosis: 1.C5-C6 stenosis with disc osteophyte complex 2. BL UE radiculopathy L>R 3. Bilateral upper extremity weakness, left worse than right .DX:Diagnosis: Herniated cervical nucleus pulposus : ICD10 = M50.20 / ICD9 = 722.0 / SNOMED = 42657079 .DX:Diagnosis: Cervical spinal stenosis : ICD10 = M48.02 / ICD9 = 723.0 / SNOMED = 86508195 .DX:Diagnosis: Pain in left upper extremity : ICD10 = M79.602 / ICD9 = 729.5 / SNOMED = 305838893 .DX:Diagnosis: Weakness of bilateral upper extremities : ICD10 = M62.81 / SNOMED = 03930115012426573 Postoperative Diagnosis: 1.C5-C6 stenosis with disc osteophyte complex 2. BL UE radiculopathy L>R 3. Bilateral upper extremity weakness, left worse than right .DX:Diagnosis: Herniated cervical nucleus pulposus : ICD10 = M50.20 / ICD9 = 722.0 / SNOMED = 33276540 .DX:Diagnosis: Cervical spinal stenosis : ICD10 = M48.02 / ICD9 = 723.0 / SNOMED = 32632638 .DX:Diagnosis: Pain in left upper extremity : ICD10 = M79.602 / ICD9 = 729.5 / SNOMED = 754639753 .DX:Diagnosis: Weakness of bilateral upper extremities : ICD10 = M62.81 / SNOMED = 55235572772062129 Procedure(s) Performed: 1. Anterior Gusman-Gonsalves approach to the spine 2. C5-6 total disc replacement (34120) 3. Use of intraoperative neuromonitoring 4. Interpretation of intraoperative flouroscopy <1 hr Implants: Prodisc C 6 mm medium deep Anesthesia: GETA Surgeon: Rd Amaya Telecommunications Professional #1: Kelsie Evans (Was present from positioning to decompression) Telecommunications Professional #2: Bishnu Parr (Was present from decompression to hardware plac ement, closure and dressing) Estimated Blood Loss (ml): 50 IV fluids (ml): 500 Urine output (ml): 0 Pathology: none sent Condition: stable Disposition: PACU Indications for Procedure: Fransisca Gallego is presenting for evaluation of low back pain. It was my pleasure to have seen and examined Fransisca Gallego. In our visit today we have had a chance to go over subjective complaints, physical examination findings and treatments including the natural course history without intervention and various interventional options. The patients imaging demonstrates xrays: These show some reversal of the normal cervical lordosis centered around C3-4 and C4-5 with about 7 deg kyphosis. This is reduced on extension films. There is no overt instability. OC and C1-2 appear stable. No fractures. Mild facet arthropathy. CT: This is reviewed and demonstrate spondylosis C4 5 C5 6 and C6 7 the worst of which is at C5-C6. There is disc desiccation with posterior disc osteophyte complex as well as posterior spurring there is left greater than right foraminal stenosis central stenosis related to disc osteophyte complex. This is moderate in nature.there is no acute fracture dislocation otherwise noted no acute lesions occipital cervical C1 2 joints appear stable. There is facet arthropathy at the levels mentioned above. MRI: this demonstrates two HNP at C4-5 and C5-6 which are moderate in nature causing moderate central and bilateral foraminal stenosis. There is no fracture or lesions. There is questionable cord signal changes at these levels where there is contact with the cord from the herniations. No lesions or instability noted. . On physical exam, Fransisca Gallego demonstrates severely restricted cervical ROM with RUE radiculopathy, weakness, positive Hoffmans, and hyperreflexia. I have explained to the patient that as their condition progresses it will cause further neurological deficits and eventual paralysis. Based on the patients imaging, physical exam, and the rapid progression and disabling nature of their symptoms, at this time I recommend surgery in the form or a: C5-C6 Total Disc Replacement. I discussed the risk and benefits of this procedure at length with Fransisca Gallego. The patient agreed to considered pursuing the procedure abovementioned. Prior to surgery, she should follow up with her PCP (Cardio, ID, IM etc) for clearance. Questions were invited and answered, and the patient wishes to proceed as outlined below. Currently, I am recommendin.C5-C6 Total Disc Replacement 2.Follow up with PCP for surgical clearance 3.Review of surgical risks and benefits as well as an educational packet on the proposed surgical procedure. Description of Procedure: The patient was seen and examined in the preoperative area. All preoperative protocols were followed. Informed consent was obtained risks and benefits of the procedure were discussed at length. Risks including bleeding infection damage to the surrounding tissue and risk of reoperation were discussed with the patient. Risk of anesthesia up to and including was a discussed with the patient. These are outlined in the risk review. They were willing to accept these risks and all of the risks of surgery. The patient was given a weight- based dose of antibiotics in the form of 2 g Ancef. The patient was seen and evaluated by the anesthesia team who deemed them fit for surgery. The site was marked, the patient was willing to proceed with the procedure. The patient was transferred to the operative suite by the Department of anesthesia. They were then drifted off to sleep by the department anesthesia and GETA was performed. The patient tolerated this well. Once confirmation of lines and ventilation the patient was transferred to a supine flattop Emeka table with a shoulder bump and shoulder bolster. Shoulders were gently taped down to the table. All bony prominences including wrists, elbows, axilla, chest, hips, and thighs, and feet were padded very well. Special attention was paid to the genitalia and these were padded accordingly. SCDs were placed on bilateral lower extremities and were connected. Arms were well padded and placed tucked at the side thumbs-up well-padded. Once in position, again we confirmed good ventilation capabilities and that lines were running appropriately. The patient's anterior cervical spine was then exposed. 1010s were placed outlining the incision site. Standard alcohol was used to clean the incision site and allowed to dry. C-arm was used to biomark the patient and confirm level for incision which was marked with a skin marker. Operative briefing was performed with all teams and everyone in agreement to proceed. The patient was then prepped and draped in a normal sterile fashion. Timeout was then performed and all parties were in agreement with the procedure to be performed. Transverse incision was made on the right-hand side of the patient's neck over the previously bowel marked area standard Gusman-Hernandez approach the anterior cervical spine was taken down bluntly between the sternocleidomastoid and the medial strap muscles. The omohyoid was identified the saphenous was identified along with the lateral vasculature which was protected. Blunt dissection taken down to the anterior cervical fascia which was identified. Blunt probe was then used to karie our level with lateral fluoroscopy once her level was confirmed with blunt instrument a sharp instrument was used to karie this disc space. Retractors were then placed and gently retracted and held in position. We then performed a subperiosteal dissection of the longissimus muscles bilaterally. Retractors were then Placed underneath these bilaterally and distraction taken place. We then visualized the uncovertebral joints on either side. We then placed [place] pins into C5 and C6 respectively parallel to the disc space. Gentle distraction was then taken out parallel to the disc spaces. Then performed a total discectomy in this area using [place] as well as curettes to scrape the endplates free of any cartilage or disc material. We used a Kerrison rongeur to remove any disc material from the lateral portions. A high-speed bur was then used to minimally bur the posterior osteophytes region and to open up this area. The PLL was identified then. The PLL was then released using a 60 up-biting curet. Once we entered this epidural space we are able to use a 2 and 3 Kerrison rongeur to remove the PLL as well as the large disc osteophyte fragment that was in this area. This is causing severe compression in this area and once relieved however able to see the decompression. We performed bilateral foraminotomies using Kerrison rongeurs well. Meticulous hemostasis was then performed using FloSeal as well as patties. Then irrigated the disc space removed any other fragments of disc and cartilage and we could see from the endplates. We kept the endplates intact but did clear them completely of cartilage. We then selected a medium deep ALVARO and placed it. Under lateral fluoroscopy we placed it in a good position without AP fluoroscopy and confirmed it was centered. We then placed the cutting jig for the keel cutter and under pulsatile floss fluoroscopy we performed the keel cuts through the jig. Once these were completed we passed each chisels over the jig to ensure that the chisels could pass easily through the scutal cuts. We then removed the trial and jig irrigated the disc space of any fragments or bony fragments perform meticulous hemostasis once again clean the tabatha using the keel machine heddle cleaner. We then selected our implant and under lateral fluoroscopic guidance impacted into place. Once it was in good position the [place] pins were removed and bone wax were placed in her void. The replacement was then tested and was stable and in good position. We then removed minimally anterior osteophytes over this area and placed bone wax over any open bone surfaces. Meticulous hemostasis again was performed. Retractors were then removed and hand-held retractors used to visualize the surrounding structures there were no injuries to the surrounding structures. Bone wax was again placed FloSeal placed deep. We then irrigated the wound thoroughly with normal sterile saline. Surgicel was placed over the site. We then proceeded with closure first with 3-0 Vicryl in the platysmal layer followed by 3-0 Vicryl in the subcu tissue followed by 4-0 running strata fix and the subcuticular layer the wound was then cleaned and dressed with exofin glue. The wound edges approximated very well. The wound was then dressed with an operative foam dressing and the patient was placed a hard cervical collar. The patient was transferred back to their hospital bed atraumatically. Patient was then awakened and extubated by the department of anesthesia having tolerated the procedure very well with no complications. They were transferred to the postoperative care unit in stable condition.
[2021-08-13] MEDS: ACETAMINOPHEN TAB 325 MG TAB PO SCH (18:25)
[2021-08-13] MEDS: GABAPENTIN 300 MG CAP PO SCH ×2 (18:25→22:30)
[2021-08-13] MEDS ORDERED: 0.9% NACL WITH KCL 20 MEQ/L 1,000 ML IV SCH (19:00)
--- NOTE | 2021-08-13 19:16 | XR ---
EXAMINATION TYPE: XR cervical spine limited, FL guidance operating room DATE OF EXAM: 08/13/2021 CLINICAL HISTORY: Cervical fusion TECHNIQUE: Fluoroscopic-guided procedure COMPARISON: CT dated 05/24/2021 FINDINGS: Fluoroscopic guidance was provided during the procedure. A total of 43 seconds of fluorosc opic time was utilized during the procedure and 11 spot images were acquired. IMPRESSION: As Above.
[2021-08-13] MEDS: KETOROLAC 15 MG/ML 1 ML VIAL IVP SCH (22:30)
[2021-08-14] MEDS: ACETAMINOPHEN TAB 325 MG TAB PO SCH ×3 (01:12→13:42)
[2021-08-14 01:30] LABS: Glucose,Whole Blood 126 mg/dL (75-99)
--- NOTE | 2021-08-14 02:04 | P.CONS ---
History of Present Illness - Reason for Consult Consult date: 08/13/21 - History of Present Illness The patient is a 46-year-old female with a PMH of cervical stenosis with upper extremity radiculopathy, depression, hyperlipidemia, hypothyroidism who was admitted for an elective C5 -6 disc replacement. The patient underwent the procedure earlier today and was seen postoperatively on the surgical unit. She was in good spirits and reported minimal neck pain at rest, which worsens to 8 out of 10 with any significant movement. Denies experiencing weakness, numbness, or tingling. He further denied difficulty swallowing, chest discomfort, sore throat, shortness of breath, or cough. Reports compliance with all her medications at home. Review of systems: Pertinent positives and negatives as discussed in HPI, a complete review of systems was performed and all other systems are negative. Physical examination: General: non toxic, no distress, appears at stated age, normal weight Derm: no unusual rashes/lesions no unusual ecchymoses, warm, dry Head: atraumatic, normocephalic, symmetric Eyes: EOMI, no lid lag, anicteric sclera, pupils equal round reactive to light ENT: Nose and ears atraumatic, no thrush, no pharyngeal erythema Neck: trachea midline, supple, neck brace in place with surgical dressings clean and dry Mouth: no lip lesion, mucus membranes moist Cardiovascular: S1S2 reg, no murmur, positive posterior tibial pulse bilateral, no edema, capillary refill less than 2 seconds Lungs: CTA bilateral, no rhonchi, no rales , no accessory muscle use Abdominal: soft, nontender to palpation, no guarding, no appreciable organomegaly, normal bowel sounds Ext: no gross muscle atrophy, muscle strength 5 out of 5 in all 4 extremities grossly, no contractures, Neuro: CN II-XI grossly intact, light touch intact all 4 extremities, finger to nose within normal limits, Psych: Alert, oriented, appropriate affect Assessment/plan Chronic conditions: Hyperlipidemia, hypothyroidism, depression -Continue with home meds Status post cervical disc replacement -Defer management including DVT prophylaxis and pain management to the primary surgical service We appreciate this opportunity to be involved in this patient's care. We will follow the patient with you. For any further questions, please not hesitate to contact the sound inpatient team. Past Medical History Past Medical History: Hyperlipidemia, Osteoarthritis (OA), Thyroid Disorder Additional Past Medical History / Comment(s): disc herniation 2 in neck, 3 in lower back, shoulder pain, recent covid 19 infection symptoms started April 06, 2021, tested positive April 11 2021 and then tested negative April 18,anemia-received iron transfusions-last received Nov 2020 History of Any Multi-Drug Resistant Organisms: None Reported Past Surgical History: Bladder Surgery, Orthopedic Surgery Additional Past Surgical History / Comment(s): bladder injections and neurostimulator implanted in back for bladder leakage, lower jaw surgery 2013,rt carpel tunnel 07-31-21 Past Anesthesia/Blood Transfusion Reactions: Family History of Problems w/ Anesthesia, Motion Sickness, Postoperative Nausea & Vomiting (PONV) Additional Past Anesthesia/Blood Transfusion Reaction / Comm: siblings and parents PONV. no hx blood transfusions Past Psychological History: Anxiety, Depression Smoking Status: Never smoker Past Alcohol Use History: None Reported Past Drug Use History: None Reported - Past Family History Mother Family Medical History: Hypertension Medications and Allergies Home Medications Medication Instructions Recorded Confirmed Type FLUoxetine HCL 60 mg PO QAM 05/13/21 08/12/21 History Folic Acid 1 mg PO DAILY 05/13/21 08/13/21 History Levothyroxine Sodium [Levoxyl] 100 mcg PO QAM 05/13/21 08/12/21 History Pantoprazole [Protonix] 40 mg PO QAM 06/03/21 08/13/21 History QUEtiapine FUMARATE 300 mg PO HS 07/30/21 08/13/21 History Acetaminophen Tab [Tylenol Tab] 1,000 mg PO Q6HR PRN 08/12/21 08/12/21 History Atorvastatin [Lipitor] 20 mg PO DAILY 08/12/21 08/13/21 History Allergies Allergy/AdvReac Type Severity Reaction Status Date / Time ampicillin Allergy Rash/Hives Verified 08/13/21 10:54 latex Allergy Rash/Hives Verified 08/13/21 10:54 Physical Exam Vitals: Vital Signs Temp Pulse Pulse Resp BP BP Pulse Ox 08/14/21 01:23 97.6 F 66 16 129/82 97 08/13/21 20:08 73 15 116/77 92 L 08/13/21 20:00 15 08/13/21 19:16 97.5 F L 82 14 117/69 96 08/13/21 17:51 86 127/71 95 08/13/21 17:35 80 126/66 99 08/13/21 17:20 75 136/71 98 08/13/21 17:05 72 16 116/69 98 08/13/21 16:50 71 8 L 140/72 100 08/13/21 16:35 64 8 L 138/78 100 08/13/21 11:00 97.1 F L 72 18 122/73 100 Intake and Output 08/13/21 08/13/21 08/14/21 14:59 22:59 06:59 Intake Total 1401 400 Output Total 50 Balance 1401 350 Intake: IV 1401 400 Output: Estimated Blood Loss 50 Other: Weight 64.5 kg 64.5 kg Results Labs: Abnormal Lab Results - Last 24 Hours (Table) 08/14/21 Range/Units 01:22 POC Glucose (mg/dL) 126 H (75-99) mg/dL
[2021-08-14] MEDS ORDERED: QUEtiapine 100 MG TAB PO SCH (02:30)
[2021-08-14] MEDS: KETOROLAC 15 MG/ML 1 ML VIAL IVP SCH ×2 (03:37→09:30)
[2021-08-14] MEDS ORDERED: LEVOTHYROXINE 100 MCG TAB PO SCH (06:30)
[2021-08-14] MEDS: HYDROcodone/APAP 5-325MG 1 EACH TAB PO PRN ×2 (08:11→13:38)
[2021-08-14] MEDS: GABAPENTIN 300 MG CAP PO SCH (08:12)
[2021-08-14 08:16] VITALS: BP 126/76; PULSE 80; RESP 20; TEMP 98.3
--- NOTE | 2021-08-14 08:46 | P.PN ---
Subjective Progress Note Date: 08/14/21 Principal diagnosis: Cervical disc displacement C5-C6 Patient seen and examined at bedside today. Patient states she is feeling well and that her pain is currently managed. Patient states that her left shoulder pain has improved since procedure. She denies any numbness tingling to bilateral upper extremities. Hard cervical collar is in place. Surgical dressing is clean dry and intact. Ms. Gallego states she has been ambulatory in room and is requesting a shower today. She states she feels well and is looking forward to being discharged today. Patient has been afebrile, denies nausea/vomiting, and chest pain. Objective - Vital Signs Vital signs: Vital Signs Temp 98.3 F 08/14/21 08:14 Pulse 80 08/14/21 08:14 Resp 20 08/14/21 08:14 BP 126/76 08/14/21 08:14 Pulse Ox 100 08/14/21 08:14 Intake & Output 08/13/21 08/14/21 08/14/21 18:59 06:59 18:59 Intake Total 1801 Output Total 50 Balance 1751 Weight 64.5 kg Intake: IV 1801 Output: Estimated Blood Loss 50 Other: # Voids 3 - Exam Physical Examination General: The patient is awake and alert, in no acute distress Skin: Skin is warm and dry with no obvious rashes or lesions. Hairy patches absent, no dorsal skin dimples, no cafe au lait spots. Surgical Incision to anterior neck. Eye: Pupils are equal, round and reactive to light, extra-ocular movements are intact; there is normal conjunctiva bilaterally. Neck: The neck is supple, there is no tenderness and ROM intact. Cardiovascular: There is a regular rate and rhythm. No murmur, rub or gallop is appreciated. Respiratory: Lungs are clear to auscultation, respirations are non-labored, breath sounds are equal. Gastrointestinal: Soft, non-distended, non-tender abdomen . Back: There is no tenderness to palpation in the midline, paralumbar, parathoracic or buttocks region. There is no obvious deformity . Musculoskeletal: ROM limited secondary to pain and stiffness from surgical procedure. Shoulder abduction 4/5, elbow flexors 4/5, wrist dorsiflexors 4/5. 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 Neurological: CN 2-12 intact. There are no obvious motor or sensory deficits. Movement and coordination equal and intact. Sensory exam to light touch intact C5-T1 and intact from L2-S1. Reflexes 2/4 in bilateral upper and lower extremities. Negative Hoffmans, babinski, and clonus signs. Psychiatric: Cooperative, appropriate mood & affect, normal judgment. - Labs Labs: Abnormal Lab Results - Last 24 Hours (Table) 08/14/21 Range/Units 01:22 POC Glucose (mg/dL) 126 H (75-99) mg/dL Assessment and Plan Assessment: Post-Op Day 1: Total disc replacement C5-C6 Plan: Plan: -Appreciate [employer] consultant and team management. -Activity: Ambulate QID, OOB all meals, up and about, limit lifting bending twisting to less than 5 lbs. -Daily PT/OT, increase ambulation strength and balance. -Cervical Hard Collar when up and about, not needed in bed or chair. Continue this until 2 week f/u. -Pain control: Adequate at this time -Meds: reviewed -GI ppx: senna, Miralax -DVT PPX: TEDS, SCDs -Hygiene: Shower today. Maintain dressing clean and dry. -Encourage IS 10x/hr -Dispo: Anticipate discharge home today with homecare *I reviewed and discussed this case with my attending Dr. Amaya, whom has reviewed this chart and films and is in agreement with assessment and plan of care as outlined above. I have personally seen and examined the patient, performed the documentation and the assessment and plan as written. Number of minutes spent on the visit: 20 minutes. Time with Patient: Less than 30
--- NOTE | 2021-08-14 08:57 | P.PN ---
Subjective Progress Note Date: 08/14/21 c/o of some neck pain, but tolerable. Doing well with IS. Saturating well on room air. Gen: awake, alert HEENT: normocephalic, atraumatic, good hearing acuity, moist mucous membranes Resp: good air exchange, breathing comfortably with no accessory muscle use CVS: good distal perfusion x 4, GI: soft, NTTP, ND : no SPT, no CVAT, cline catheter not present MSK: no pitting edema, no clubbing, neck brace Neuro: non-focal, moving all extremities Psych: cooperative, euthymic mood Assessment/plan: Chronic conditions: Hyperlipidemia, hypothyroidism, depression -Continue with home meds Status post cervical disc replacement -Defer management including DVT prophylaxis and pain management to the primary surgical service We appreciate this opportunity to be involved in this patient's care. We will follow the patient with you. For any further questions, please not hesitate to contact the sound inpatient team. Objective - Vital Signs Vital signs: Vital Signs Temp 98.3 F 08/14/21 08:14 Pulse 80 08/14/21 08:14 Resp 20 08/14/21 08:14 BP 126/76 08/14/21 08:14 Pulse Ox 100 08/14/21 08:14 Intake & Output 08/13/21 08/14/21 08/14/21 18:59 06:59 18:59 Intake Total 1801 Output Total 50 Balance 1751 Weight 64.5 kg Intake: IV 1801 Output: Estimated Blood Loss 50 Other: # Voids 3 - Labs Labs: Abnormal Lab Results - Last 24 Hours (Table) 08/14/21 Range/Units 01:22 POC Glucose (mg/dL) 126 H (75-99) mg/dL
[2021-08-14] MEDS ORDERED: FLUoxetine HCL 20 MG CAP PO SCH (09:00)
[2021-08-14] MEDS ORDERED: FOLIC ACID 1 MG TAB PO SCH (09:00)
[2021-08-14] MEDS ORDERED: ATORVASTATIN 20 MG TAB PO SCH (09:00)
[2021-08-14] MEDS ORDERED: PANTOPRAZOLE 40 MG TABLET PO SCH (09:00)
[2021-08-14 09:02] LABS: Basophils # (A) 0.02 X 10*3/uL (0.00-0.10); Basophils % (A) 0.2 %; Eosinophils # (A) 0 X 10*3/uL (0.04-0.35); Eosinophils % (A) 0 %; HCT 38.1 % (37.2-46.3); HGB 12.4 g/dL (12.0-15.0); Immature Grans, Automated 0.4 %; Lymphocytes # (A) 0.93 X 10*3/uL (0.90-5.00); Lymphocytes % (A) 7.9 %; MCH 28.4 pg (27.0-32.0); MCHC 32.5 g/dL (32.0-37.0); MCV 87.4 fL (80.0-97.0); Mean Platelet Volume 10.6 fL (9.5-12.2); Monocytes # (A) 0.27 X 10*3/uL (0.20-1.00); Monocytes % (A) 2.3 %; NRBC Per 100 WBC 0 /100 WBCS (0.0-0.0); Neutrophils # (A) 10.52 X 10*3/uL (1.80-7.70); Neutrophils % (A) 89.2 %; Platelet Count 325 X 10*3/uL (140-440); RBC 4.36 X 10*6/uL (4.10-5.20); RDW 11.8 % (11.5-14.5); WBC 11.79 X 10*3/uL (4.50-10.00)
[2021-08-14 09:18] LABS: African American GFR (CKD) 125.8 (60.0-200.0); Anion Gap 11.2 mmol/L (10.00-18.00); BUN/Creat Ratio 15.5 Ratio (12.00-20.00); Blood Urea Nitrogen 9.3 mg/dL (9.0-27.0); Calcium 9.2 mg/dL (8.7-10.3); Carbon Dioxide 21.8 mmol/L (20.0-27.5); Non-African American GFR(CKD) 108.5 (60.0-200.0); Potassium 4.5 mmol/L (3.5-5.5)
[2021-08-14] MEDS: LACTATED RINGERS 1,000 ML IV SCH (09:29)
--- NOTE | 2021-08-14 11:24 | XR ---
EXAMINATION TYPE: XR cervical spine limited DATE OF EXAM: 08/14/2021 COMPARISON: CT dated 05/24/2021 INDICATION: Postoperative TECHNIQUE: 2 views of the cervical spine FINDINGS: Interval insertion of metallic prosthesis at C5-6 opposing endplates. Prevertebral soft tissue swelli ng and gas likely related to acute postoperative changes. Good vertebral alignment with no significant anterolisthesis or retrolisthesis. No definite vertebral body collapse. Osteophytosis at C5-6 and C6-7 opposing endplates. IMPRESSION: Postsurgical changes as described above.
--- NOTE | 2021-08-14 12:49 | P.DS ---
Providers Date of admission: 08/13/21 22:58 Expected date of discharge: 08/14/21 Attending physician: Rd Amaya DO Consults: 08/13/21 15:23 Consult Physician Routine Consulting Provider: Amy Rodas Consult Reason/Comments: medical management Do you want consulting provider notified?: Yes Primary care physician: Marissa Gallagher MD Hospital Course: Hospital Course: The patient was evaluated preoperatively and found to have the diagnosis of cervical C5 to C6 disc displacement. They underwent appropriate preoperative care and were willing to undergo the intended procedure. They underwent a successful cervical C5 to C6 total disc replacement, were recovered appropriately and sent to the floor. While on the floor they worked with physical therapy, occupational therapy and nursing to enhance their recovery experience. Their pain was well controlled through their stay and they were started on appropriate medications, DVT ppx modalities, activity and dietary needs. Daily labs were monitored closely, and transfusions were only used when necessary. Medicine as well as other consulting services have made their input and have helped with our team approach and multidisciplinary care. PT milestones have been met and passed and they have made the recommendation of home with home care for this patient and treating providers agree with this care path. The patient will be discharged home with appropriate medications, instructions and follow-up information and in stable condition. Patient Condition at Discharge: Good Plan - Discharge Summary Discharge Rx Participant: Yes New Discharge Prescriptions: New Cyclobenzaprine [Flexeril] 5 mg PO TID #90 tablet Gabapentin 300 mg PO TID #90 cap Indomethacin [Indocin] 25 mg PO BID 14 Days #28 capsule HYDROcodone/APAP 10-325MG [Wallace 10-325] 1 tab PO Q4-6H PRN #56 tab PRN Reason: Pain Sennosides/Docusate Sodium [Senna Plus 8.6-50 mg Tablet] 1 each PO DAILY PRN #20 tablet PRN Reason: Constipation Sulfamethox-Tmp 800-160Mg [Bactrim DS 800-160 mg] 1 tab PO Q12HR 5 Days #10 tab No Action Folic Acid 1 mg PO DAILY Levothyroxine Sodium [Levoxyl] 100 mcg PO QAM QUEtiapine FUMARATE 300 mg PO HS Atorvastatin [Lipitor] 20 mg PO DAILY Acetaminophen Tab [Tylenol Tab] 1,000 mg PO Q6HR PRN PRN Reason: Pain FLUoxetine HCL 60 mg PO QAM Pantoprazole [Protonix] 40 mg PO QAM Discharge Medication List FLUoxetine HCL 60 mg PO QAM 05/13/21 [History] Folic Acid 1 mg PO DAILY 05/13/21 [History] Levothyroxine Sodium [Levoxyl] 100 mcg PO QAM 05/13/21 [History] Pantoprazole [Protonix] 40 mg PO QAM 06/03/21 [History] QUEtiapine FUMARATE 300 mg PO HS 07/30/21 [History] Acetaminophen Tab [Tylenol Tab] 1,000 mg PO Q6HR PRN 08/12/21 [History] Atorvastatin [Lipitor] 20 mg PO DAILY 08/12/21 [History] Cyclobenzaprine [Flexeril] 5 mg PO TID #90 tablet 08/14/21 [Rx] Gabapentin 300 mg PO TID #90 cap 08/14/21 [Rx] HYDROcodone/APAP 10-325MG [Wallace 10-325] 1 tab PO Q4-6H PRN #56 tab 08/14/21 [Rx] Indomethacin [Indocin] 25 mg PO BID 14 Days #28 capsule 08/14/21 [Rx] Sennosides/Docusate Sodium [Senna Plus 8.6-50 mg Tablet] 1 each PO DAILY PRN #20 tablet 08/14/21 [Rx] Sulfamethox-Tmp 800-160Mg [Bactrim DS 800-160 mg] 1 tab PO Q12HR 5 Days #10 tab 08/14/21 [Rx] Follow up Appointment(s)/Referral(s): Rd Amaya DO [Doctor of Osteopathic Medicine] - 2 Weeks Marissa Gallagher MD [Primary Care Provider] - 1 Week Activity/Diet/Wound Care/Special Instructions: Spine Discharge and Recovery Instructions Date of Surgery: 08/13/2021 Diagnosis: Cervical C5 to C6 disc displacement Procedure: Cervical C5 to C6 total disc replacement Medications: See medication list All medication refills should be obtained through your primary care doctor or your clinic spine surgeon. Please discuss prescription refills at your follow up appointment. Do not call the hospital for medication refills. Dressing: Leave your dressing in place for a total of 5 days post operatively. Then you may remove your dressing and leave open to air. Keep the area clean and if not able to keep area clean, then cover with sterile gauze and tape. Showering: You may shower 3 days after your procedure allowing soap and water to run over incision. Do not scrub. Do not soak. Blot dry. Follow up: Please confirm a follow up appointment with your surgeon 3 weeks post operatively. Please make an appointment to follow up with your PCP in 1-2 weeks after surgery for evaluation 3 phase, 3-week plan POST OP WEEKS 1-3 1. Lifting/carrying/pushing/pulling limited to less than 5 pounds. 2. Do not sit for longer than 15 minutes at one time. Get up and walk around. Prolonged sitting is NOT advised. If you lay down, see if you can tolerate laying down on you front (belly side) 3. Walk for periods of 15 minutes = 1 mile but no longer; do it multiple times times each day. 4. Ice your low back after activity. POST OP WEEKS 3-6 1. Lifting limited to less than 20 pounds. 2. Do not sit for longer than 30 minutes at a time. Frequently change positions. Use a sit-to stand workstation or take frequent breaks from sitting if you have returned to work. 3. Walk for 30 minutes each day. If possible, do these three or more times a day POST OP WEEKS 6+ At your 6-week appointment we will give you a physical therapy referral to focus on a core stabilization and strengthening program. You should also work on leg & buttock strengthening, hamstring & quadriceps stretching, and continue a low impact aerobic activity program such as swimming, walking, or riding a sta tionary bicycle. During the initial 6 weeks after your surgery, you are at the highest risk of re-injuring your spine. You should generally avoid BLTs (bending, lifting and twisting combination motions) and follow the above guidelines to reduce the chance of reinjury. You can anticipate post op appointments in our office at approximately 3 weeks and 6 weeks after your surgery. INCISION CARE: If your incision is not draining you do NOT need to cover it with a dressing. Keep your incision clean, dry and intact. In most cases, we apply skin glue, fela or sutures to the incision at the time of surgery. This will be like a crust or have the appearance of a scab and will fall off in time on its own. The stitches or fela need to be removed at 3 weeks post op appointment. You may begin to shower 3 days after surgery (this allows the glue to lee well). However, please avoid scrubbing the incision site or peeling off any of the skin glue. This will ensure optimal healing of your incision. Also, during this time avoid soaking the incision area in water - this includes swimming pools, hot tubs or baths. No ointments, lotions or oils on the incision until your surgeon allows. Leave fela, sutures or glue in place. Neurological dysfunction that comes on suddenly can also be a sign of a stroke. Below some common symptoms of a stroke are listed: B - balance difficulty such as sudden onset walking or leaning to one side - NEW E - eye problem such as sudden double vision or trouble seeing on one side - NEW F - Facial weakness or numbness on one side - NEW A - Arm or leg weakness or numbness on one side - NEW S - Slurred speech or difficulty with word finding - NEW T - Time is BRAIN! Call 911 as soon as you recognize these symptoms Diet: Consume a regular diet rich in vegetables and lean protein such as chicken or fish. You should consume in a ratio of approximately 20% fats|40% carbohydrates|40%protein. Vegetables, sweet potatoes, brown rice or quinoa are examples of good carbohydrates. Chips, white bread, cookies and sweets/sugar are examples of bad carbohydrates. Limit your bad carbs, go wild with good carbs. "Life's Simple 7" Guidelines as per [place] [employer] These will help you reclaim your life after surgery and mechanic helper in your recovery, keeping in mind your restrictions. (1) Get Active. Physical activity can help people lose weight, control high blood pressure and cholesterol, feel emotionally better, and sleep better. (2) Control Cholesterol. Avoid a diet high in saturated fat, trans fat, & cholesterol. Limit whole milk & cream, ice cream, butter, egg yolks, processed meats (like sausage and hot dogs), and fatty meats. Choose healthy foods that are low in saturated fat, trans fat and cholesterol which include: Fruits and vegetables, fiber rich grain products (like whole grain pasta and brown rice), lean meat such as chicken, fish, nuts, seeds, and legumes. (3) Eat Better. Eat small portions. Shop at the grocery with a list and do not stray from it. Tips for a healthy diet include: Limit sodium intake to less than 1500mg daily, avoid prepackaged, processed, and fast foods, choose a diet rich in fruits, vegetables, and whole grain, high fiber foods, and limit saturated & cholesterol in your diet. (4) Manage Blood Pressure. If you have high blood pressure, you should have a cuff at home so that you can check your blood pressure regularly. Be sure you have a good cuff. An arm one is generally better than a wrist one. Bring the cuff to a doctor's appointment to validate that the measurements that your cuff are taking are accurate. Take your blood pressure twice daily when you are sitting down and relaxing. Record the numbers in a log and bring this log with you to your doctors' appointments. (5) Lose Weight if your BMI is above 25. A healthy BMI is between 19-25. To calculate Your BMI, you may use a Standard BMI Calculator on the NIH BMI website: <www.nhlbi.nih.gov/guidelines/obesity/BMI/bmicalc.htm>. Weigh oneself daily. If you are overweight, set a goal to lose weight. A pound a week loss if needed is a good target. (6) Reduce Blood Sugar. Limit foods and liquids with "added sugars." (Added sugars include sucrose, fructose, glucose, maltose, dextrose, high fructose corn syrup, corn syrup, concentrated fruit juice and honey). (7) Stop Smoking. If you smoke, quitting smoking is one of the best things that you can do for your health. Smoking increases your risk of heart attack, stroke, and peripheral vascular disease, which is a build-up of plaque in your arteries. Please discard all the cigarettes and lighters in your house. Have a plan for what you will do when you have the urge to smoke. Direct and second- hand smoke shortens your life as well as the lives of your family, friends and others around you. For your health and the health of those around you, please consider quitting! Proper Bending Body Mechanics: Maintain a wide stance with one foot slightly in front of the other. Keep your back straight. Bend utilizing the strength in your hips and knees. Do not bend at the waist. Maintain the lifted object at your waist-level close to your body. Avoid lifting weight that causes immediately pain or pain anywhere in the body afterwards. Smoking/Nicotine If there was ever one thing that you could do to increase your overall health, decrease your risk of cardiovascular problems by about 39% the second you make the choice, it is to STOP SMOKING. Your body's most instant gratification is the second you stop smoking. We have all heard the studies, read the articles but it is true, smoking is extremely bad for your overall health, and moreover it is detrimental to your bone health. Nicotine, IN ANY FORM, kills bone cells, prevents your body from healing fractures, and significantly prolongs healing after surgery. In spine surgery specifically, it increases your risk of not healing your bones to create a fusion and increases your risk of having a revision surgery due to this up to 60%. I know it is hard. I know it feels impossible. But there are ways. Take control of your life. We are here to help you through it. And when you are ready, ask us and we can direct you to help if you desire. Use the START Plan to Quit Smoking (please visit the [employer] website listed below for more information): S = Set a quit date. Choose a date within the next 2 weeks, so you have enough time to prepare without losing your motivation to quit. If you mainly smoke at work, quit on the weekend, so you have a few days to adjust to the change. T = Tell family, friends, and co-workers that you plan to quit. Let your friends and family in on your plan to quit smoking and tell them you need their support and encouragement to stop. Look for a quit stephanie who wants to stop smoking as well. You can help each other get through the rough times. A = Anticipate and plan for the challenges you'll face while quitting. Most people who begin smoking again do so within the first 3 months. You can help yourself make it through by preparing ahead for common challenges, such as nicotine withdrawal and cigarette cravings. R = Remove cigarettes and other tobacco products from your home, car, and work. Throw away all your cigarettes (no emergency pack!), lighters, ashtrays, and matches. Wash your clothes and freshen up anything that smells like smoke. Shampoo your car, clean your drapes and carpet, and steam your furniture. T = Talk to your doctor about getting help to quit. Your doctor can prescribe medication to help with withdrawal and suggest other alternatives. If you can't see a doctor, you can get many products over the counter at your local pharmacy or grocery store, including the nicotine patch, nicotine lozenges, and nicotine gum. Resources for Quitting Smoking: <https://www.[place].gov/documents/[facility]/Quit_Tobacco_Resources_for_patients_313 480_7.pdf> Supplementation: Take recommended dosages of Vitamin D and Calcium to help fortify your bones and help them to heal. See your health maintenance packet for dosages and recommended levels. DVT/VTE prophylaxis: You will be given compression stockings from the hospital. Wear these daily for the first two weeks after surgery. You may take them off at night. You may be prescribed a medication to help thin your blood. Take this as directed. If you are not prescribed this medication, early and frequent ambulation has been shown to be the best prophylaxis to deep vein thrombosis and sequelae related to this event. Discharge Disposition: HOME WITH HOME HEALTH SERVICES
== END 2021-08-14 15:27 | disposition home health service (06) ==
LOC: OR 10:31 → 4SSUR 15:31 → OR 22:58 → 4SSUR 22:58
PROVIDERS: ADMIT Orthopaedic Surgery; ATTEND Orthopaedic Surgery
DX: M48.02 Spinal stenosis, cervical region (principal); M47.22 Other spondylosis with radiculopathy, cervical region; M50.10 Cervical disc disorder with radiculopathy, unspecified cervical region; M25.78 Osteophyte, vertebrae; E03.9 Hypothyroidism, unspecified; D50.9 Iron deficiency anemia, unspecified; F32.9 Major depressive disorder, single episode, unspecified; F43.10 Post-traumatic stress disorder, unspecified; M19.90 Unspecified osteoarthritis, unspecified site; N39.3 Stress incontinence (female) (male); E78.00 Pure hypercholesterolemia, unspecified; E78.5 Hyperlipidemia, unspecified; R41.3 Other amnesia; Z98.890 Other specified postprocedural states; Z86.16 Personal history of COVID-19; Z87.891 Personal history of nicotine dependence; Z83.3 Family history of diabetes mellitus; Z82.49 Family history of ischemic heart disease and other diseases of the circulatory system; Z79.890 Hormone replacement therapy; Z79.899 Other long term (current) drug therapy; Z88.0 Allergy status to penicillin; Z91.040 Latex allergy status
CPT/HCPCS: 97161; 86900; 86901; 80048; 85025; 86850; 72040 ×2; 22856; G0378 ×2; C1713; J2250; J1200; J1100; J0690 ×3; J2405; J3010; J1170 ×2; J1885 ×2; J2370; J0330; J2704; J2001

== ENCOUNTER 2022-01-09 07:21 | Day surgery (SDC) | payer OTHER ==
[2022-01-09 08:20] VITALS: RESP 16; TEMP 97.6
[2022-01-09] MEDS ORDERED: diazePAM 5 MG TAB PO STA (08:24)
--- NOTE | 2022-01-09 12:10 | CT ---
EXAMINATION TYPE: CT cervical spine w con DATE OF EXAM: 01/09/2022 COMPARISON: Prior CT cervical spine May 24, 2021 HISTORY: Radiculopathy per order. Persistent neck pain despite surgery. CT DLP: 344 mGycm. Automated Exposure Control for Dose Reduction was Utilized. TECHNIQUE: CT scan of the cervical spine is obtained following intrathecal administration of contras t. Patient was injected with 13 cc of Isovue-M 200. FINDINGS: Interval placement of surgical change or metallic endplates at the C5-C6 level causing some streak artifact at this level at the site where there was prior posterior spur disc complex effacing the anterior thecal sac. Slightly greater than 1 retrolisthesis C5 on C6 is unchanged from prior. Rivera ccessful intrathecal contrast injection redemonstrated. Vertebral body heights and disc space heights above and below surgical level remain stable and satisfactory. Review of axial images redemonstrates tiny posterior spur disc complex C4-C5 level minimally effacing the anterior thecal sac. No significant change from prior. Other cervical levels remain within yovanny l limits. Neural foramina are patent bilaterally at all cervical levels. Thyroid gland appears within normal limits. Lung apices show no pneumothorax. IMPRESSION: Interval successful surgical removal of the posterior C5-C6 spur disc complex effacing th e anterior thecal sac. Alignment is stable. No new suspicious focal disc herniation identified.
[2022-01-09 12:47] VITALS: BP 121/74; PULSE 78
--- NOTE | 2022-01-09 12:51 | FL ---
EXAMINATION TYPE: FL myelogram cervical DATE OF EXAM: 05/24/2021 9:37 AM HISTORY: Cervical neck pain. History of interval surgery. COMPARISON: Prior cervical myelogram May 24, 2021. Prior outside MRI lumbar spine January 18. Technique: Fluoroscopic assisted lumbar puncture for subsequent CT cervical spine. A total of 20 seco nds of fluoroscopic time utilized during procedure. There are 2 spot images saved to PACS. Findings: Informed consent was obtained and all the patient's questions were answered. Patient placed in prone position. The L3-L4 level was localized under fluoroscopy after review of prior study. Over lying skin is cleansed with Betadine. Standard sterile technique was utilized as well as appropriate local anesthesia 1% Lidocaine . Spinal needle was introduced into the thecal sac under fluoroscopic guidance and 13 ml of Isovue-M 200 was injected. Patient placed head down to the contrast to flow int o the cervical spinal canal which is successful and documented. The patient tolerated the procedure w ell and left the department in stable condition. CT myelography is to follow. This report is dictate d separately. Vital signs were monitored before during and after procedure. Patient stated the hospit al short stay after procedure an CT and was discharged home in stable and satisfactory condition IMPRESSION: Successful lumbar puncture for subsequent myelography cervical spine.
== END 2022-01-09 13:00 | disposition home or self-care (01) ==
LOC: RADPROMAIN 07:21
PROVIDERS: ATTEND Orthopaedic Surgery
DX: M54.10 Radiculopathy, site unspecified (principal)
CPT/HCPCS: 62302; 72126; J2001; Q9966

== ENCOUNTER 2022-04-29 08:32 | Day surgery (SDC) | payer OTHER ==
[2022-04-24 11:07] VITALS: BMI 29.9
--- NOTE | 2022-04-28 10:03 | P.HPOR ---
History of Present Illness H&P Date: 04/28/22 Chief Complaint: Right middle finger trigger finger Subjective: This is a 46 year old female that presents today for follow up evaluation regarding a right middle finger trigger finger. She underwent steroid injection in October of 2021 with minimal relief. Her injection for her left middle finger has resolved her symptoms. She still has locking and painful clicking of the right middle finger. Physical Examination: RUE: AIN/PIN/Radial/Ulnar/Median motor intact. Radial/Ulnar/Median SILT. 2+/4 Radial/Ulnar pulses palpated. Incisions well healed around endoscopic carpal tunnel release incision. TTP over A1 dieudonne of middle finger with locking/catching and clicking. Impression: 1.) Right middle finger trigger finger Plan: Diagnosis and treatment options were discussed with the patient. She would like to pursue surgical intervention in the form of a right middle finger A1 dieudonne release for her RMF trigger finger. Risks and benefits of surgery including bleeding, infection, damage to surrounding tissue, need for further surgery, residual numbness were discussed and the patient wished to go forward with surgery. The patient was agreeable with this plan of action. -Atilio Munoz DO Orthopedic Hand/Upper Extremity Surgeon Past Medical History Past Medical History: GERD/Reflux, Hyperlipidemia, Osteoarthritis (OA), Thyroid Disorder Additional Past Medical History / Comment(s): disc herniation 2 in neck, 3 in lower back, shoulder pain, MIGRAINE HEADACHE, History of Any Multi-Drug Resistant Organisms: None Reported Past Surgical History: Bladder Surgery, Orthopedic Surgery Additional Past Surgical History / Comment(s): bladder injections and neurostimulator implanted in back for bladder leakage, oral surgery, LT CTR- 06/05/21, cervical disc surgery 05/2021 Past Anesthesia/Blood Transfusion Reactions: No Reported Reaction, Postoperative Nausea & Vomiting (PONV) Additional Past Anesthesia/Blood Transfusion Reaction / Comment(s): no hx blood transfusions, FATHER HAD POST OP NAUSEA AND VOMITING Smoking Status: Former smoker - Past Family History Mother Family Medical History: Hypertension Medications and Allergies Home Medications Medication Instructions Recorded Confirmed Type FLUoxetine HCL 60 mg PO QAM 05/13/21 04/24/22 History Folic Acid 1 mg PO DAILY 05/13/21 04/24/22 History Levothyroxine Sodium [Levoxyl] 100 mcg PO QAM 05/13/21 04/24/22 History Pantoprazole [Protonix] 40 mg PO BID 06/03/21 04/24/22 History QUEtiapine FUMARATE 300 mg PO HS 07/30/21 04/24/22 History Acetaminophen Tab [Tylenol] 1,000 mg PO Q6HR PRN 08/12/21 04/24/22 History Atorvastatin [Lipitor] 20 mg PO DAILY 08/12/21 04/24/22 History Cyclobenzaprine [Flexeril] 5 mg PO TID #90 tablet 08/14/21 04/24/22 Rx Sennosides/Docusate Sodium [Senna 1 each PO DAILY PRN #20 tablet 08/14/21 04/24/22 Rx Plus 8.6-50 mg Tablet] busPIRone HCL 10 mg PO HS 12/24/21 04/24/22 History cloNIDine HCL [Catapres] 0.1 mg PO BID 04/24/22 04/24/22 History rOPINIRole HCL [Requip] 0.25 mg PO HS 04/24/22 04/24/22 History Allergies Allergy/AdvReac Type Severity Reaction Status Date / Time ampicillin Allergy Rash/Hives Verified 04/24/22 10:24 gabapentin Allergy SHAKING OF Verified 04/24/22 10:58 LEGS,LEG DISCOMFORT latex Allergy Rash/Hives Verified 04/24/22 10:24 nylon Allergy Rash/Hives Verified 04/24/22 10:24 Physical Examination Osteopathic Statement: *. No significant issues noted on an osteopathic structural exam other than those noted in the History and Physical/Consult.
[~2022-04-29 08:32] MED LIST changes: -ACETAMINOPHEN TAB 500 MG TAB PO PRN; -GABAPENTIN 300 MG CAP PO PRN; -HYDROmorphone 0.5 MG/0.5 ML SYRINGE IVP PRN; -MIDAZOLAM 2 MG/2 ML VIAL IV PRN; -ONDANSETRON 4 MG/2 ML VIAL IVP PRN; +Pre Op ABX Message 1 EACH MISC MISCELLANE ONE; -TRANEXAMIC ACID IN NACL,ISO-OS 1,000 MG in SALINE 1 100ML.BAG IVPB PRN
[2022-04-29] MEDS ORDERED: LACTATED RINGERS 1,000 ML IV SCH (08:48)
[2022-04-29] MEDS ORDERED: DEXAMETHASONE SOD PHOSPHATE 4 MG/ML 1 ML VIAL IV ONE (08:48)
[2022-04-29] MEDS ORDERED: MIDAZOLAM 2 MG/2 ML VIAL IV PRN (08:48)
[2022-04-29] MEDS ORDERED: SCOPOLAMINE 1 MG/72 HR PATCH TRANSDERM ONE (08:48)
[2022-04-29] MEDS ORDERED: HYDROmorphone 0.5 MG/0.5 ML SYRINGE IVP PRN (08:48)
[2022-04-29] MEDS ORDERED: ONDANSETRON 4 MG/2 ML VIAL IVP ONE (08:48)
[2022-04-29 08:59] VITALS: RESP 16; TEMP 96.6
[2022-04-29 09:15] LABS: HCT 32.9 % (34.0-46.0); HGB 10.4 gm/dL (11.4-16.0); MCH 26.4 pg (25.0-35.0); MCHC 31.6 g/dL (31.0-37.0); MCV 83.4 fL (80.0-100.0); Mean Platelet Volume 8.2; Platelet Count 304 k/uL (150-450); RBC 3.94 m/uL (3.80-5.40); RDW 13.3 % (11.5-15.5); WBC 4.6 k/uL (3.8-10.6)
[2022-04-29] MEDS ORDERED: MEPERIDINE 50 MG/ML SYRINGE IVP ONE (09:17)
[2022-04-29 09:21] LABS: Glucose,Whole Blood 78 mg/dL (70-110)
[2022-04-29] MEDS ORDERED: fentaNYL (PF) 50 MCG/ML 2 ML AMP ONE (09:55)
[2022-04-29] MEDS ORDERED: MIDAZOLAM 2 MG/2 ML VIAL ONE (09:55)
[2022-04-29] MEDS ORDERED: PROPOFOL 10 MG/ML 20 ML VIAL IV ONE (09:55)
[2022-04-29] MEDS ORDERED: BUPIVACAINE (PF) 0.5% 30 ML VIAL SQ ONE ×2 (09:57→10:07)
[2022-04-29] MEDS ORDERED: LIDOCAINE 1% INJ 10MG/ML (10 ML MDV) SQ ONE ×2 (09:57→10:07)
[2022-04-29 11:27] VITALS: BP 110/67; PULSE 78
--- NOTE | 2022-04-29 19:33 | P.OP ---
Date of Procedure: 04/29/22 Preoperative Diagnosis: Right middle finger trigger finger Postoperative Diagnosis: Right middle finger trigger finger Procedure(s) Performed: Right middle finger A1 dieudonne release Anesthesia: MAC Surgeon: Atilio Munoz Mri Specialist #1: Ashwin Mcbride Pathology: none sent Condition: stable Disposition: PACU Description of Procedure: This is a 46 year old female who presents today for a right middle finger trigger finger A1 dieudonne release after having failed conservative treatment. Ri sks and benefits of surgery were discussed with the patient including bleeding, damage to surrounding tissue, infection, need for further surgery as well as risks of anesthesia including pulmonary embolism and even and the patient wished to proceed with surgical intervention. The patient was seen in the pre- operative area by myself. Consent and H&P were completed and updated. The correct extremity was marked in the pre-operative area by myself and all other questions were answered. Operative Narrative: The patient was brought to the operating room by the department of anesthesia. They remained on the portable stretcher and a rolling hand table was brought to the side of the operative extremity. Pre-operative time out was performed indicating the correct patient, procedure and laterality. All in the room agreed. Pre-operative antibiotics were given prior to skin incision. The patient was then drifted off to sleep by the department of anesthesia. [facility] an esthesia was utilized and a 50:50 mixture of 1% Lidocaine and 0.5% bupivacaine was injected into the subcutaneous tissues of the palmar skin, 4ccs total. A nonsterile tourniquet was then applied to the operative extremity and the right upper extremity was then prepped and draped in normal sterile fashion. The operative extremity was the exsanguinated with an esmarch bandage and the tourniquet was inflated to 250mmHg. Oblique incision was made at the base of the right middle finger finger. Blunt dissection was taken down to the level of the A1 dieudonne. Ragnell retractors were placed both radially and ulnarly to protect neurovascular bundles. Littler tenotomy scissors were then used to release the A1 dieudonne from proximal to distal under direct visualization. Proximal fascial attachments were released. The tendon was then taken through range of motion and no locking or catching was appreciated. The wound was then closed with interrupted 4-0 monocryl sutures and Exofin skin glue. Sterile dressing consisting of 4x4s, webril, and an nasreen wrap was applied. Tourniquet was let down and the hand was immediately well perfused. The patient was then woken by the department of anesthesia and transferred to PACU in stable condition. Ashwin ALSTON was present to assist in major portions of the case. Atilio Munoz D.O. Orthopedic Hand/Upper Extremity Surgeon
== END 2022-04-29 11:35 | disposition home or self-care (01) ==
LOC: OR 08:32
PROVIDERS: ATTEND Orthopaedic Surgery Hand Surgery
DX: M65.331 Trigger finger, right middle finger (principal); E78.5 Hyperlipidemia, unspecified; K21.9 Gastro-esophageal reflux disease without esophagitis; M19.90 Unspecified osteoarthritis, unspecified site; Z88.1 Allergy status to other antibiotic agents; Z88.8 Allergy status to other drugs, medicaments and biological substances; Z91.040 Latex allergy status; Z91.048 Other nonmedicinal substance allergy status; G43.909 Migraine, unspecified, not intractable, without status migrainosus; M50.20 Other cervical disc displacement, unspecified cervical region; Z96.82 Presence of neurostimulator; Z98.890 Other specified postprocedural states; Z87.891 Personal history of nicotine dependence; Z82.49 Family history of ischemic heart disease and other diseases of the circulatory system; Z79.52 Long term (current) use of systemic steroids; Z79.1 Long term (current) use of non-steroidal anti-inflammatories (NSAID); Z79.02 Long term (current) use of antithrombotics/antiplatelets; Z79.890 Hormone replacement therapy; E03.9 Hypothyroidism, unspecified; Z79.899 Other long term (current) drug therapy; Z79.891 Long term (current) use of opiate analgesic
CPT/HCPCS: 26055; 81025; 85027; J2250; J1100; J2175; J2405; J3010; J2001; J2704